=== PATIENT | female | born 1965 | race Hispanic/Latino ===

== ENCOUNTER 2017-09-25 00:44 | Emergency (ER) | payer OTHER ==
[~2017-09-25] VITALS: Ht 154.9 cm; Wt 89.1 kg
[2017-09-25 02:33] LABS: BASOPHIL (%) 0.2 % (0-1); EOSINOPHIL (%) 1.3 % (0-5); EOSINOPHIL COUNT 0.2 K/uL (0-0.3); HEMATOCRIT 38.6 % (36.0-46.0); HEMOGLOBIN 13.3 G/DL (11.9-15.5); IMMATURE GRANULOCYTE (%) 1.2 % (0.0-0.7); LYMPHOCYTE (%) 14.1 % (15-42); LYMPHOCYTE COUNT 1.7 K/uL (1.0-2.8); MCH 31.6 PG (29.0-34.0); MCHC 34.5 G/DL (30.0-36.0); MCV 91.7 FL (83-99); MONOCYTE (%) 7.1 % (3-12); MONOCYTE COUNT 0.9 K/uL (0-0.8); NEUTROPHIL (%) 76.1 % (45-76); NEUTROPHIL COUNT 9.2 K/uL (1.8-6.4); PLATELET COUNT 291 K/uL (156-360); RBC DIS.WIDTH-CV 13.2 % (11.8-14.6); RED BLOOD COUNT 4.21 M/uL (3.80-5.20); WHITE BLOOD COUNT 12.1 K/uL (4.1-10.2)
[2017-09-25 02:48] LABS: ALBUMIN 4.6 g/dL (3.2-4.8); CHLORIDE 105 mEq/L (99-109); POTASSIUM 4.2 mEq/L (3.7-5.4); SODIUM 140 mEq/L (136-147)
[2017-09-25 02:50] LABS: GLUCOSE 141 mg/dL (70-99); TOTAL PROTEIN 7.2 g/dL (6.4-8.3)
[2017-09-25 02:52] LABS: TOTAL BILIRUBIN 0.6 mg/dL (0.0-1.0)
[2017-09-25 02:54] LABS: APPEARANCE SL.HAZY ((CLEAR)); BILIRUBIN NEGATIVE; BLOOD NEGATIVE; COLOR AMBER ((YELLOW)); GLUCOSE (STRIP) NEGATIVE; KETONES 5; LEUKOCYTES NEGATIVE; NITRITE NEGATIVE; PROTEIN (STRIP) 30; SPECIFIC GRAVITY 1.027 (1.000-1.030)
[2017-09-25 02:55] LABS: ALKALINE PHOSPHATASE 75 IU/L (3-129); AST (GOT) 14 IU/L (2-34); CREATININE 1.3 mg/dL (0.6-1.3); GFR ESTIMATE (CALCULATED) 46 mL/min/; UREA NITROGEN (BUN) 16 mg/dL (9-23)
[2017-09-25 02:57] LABS: ALT (GPT) 14 IU/L (3-49); LIPASE 60 U/L (1.0-51.0)
[2017-09-25 03:18] LABS: TROP-I INTERPRETATION NEGATIVE; TROPONIN-I < 0.01 ng/mL (0.0-0.30)
[2017-09-25 04:02] LABS: BACTERIA RARE /HPF; EPITHELIAL CELLS 1+ /HPF; MUCUS 1+ /LPF; RED BLOOD CELLS 0-5 /HPF (0-5); WHITE BLOOD CELLS 0-5 /HPF (0-5)
[2017-09-25] MEDS ORDERED: IMODIUM A-D2 M2 PO (04:32)
[2017-09-25] MEDS ORDERED: PEPCID20 MG PO (04:32)
[2017-09-25] MEDS ORDERED: CARAFATE1 GM PO (04:32)
[2017-09-25] MEDS ORDERED: NORCO 10/3251 TABLET PO (04:35)
[2017-09-25 05:02] LABS: QUANTITATIVE HCG < 4.0 MIU/ML
[2017-09-25 05:12] VITALS: BP 102/58
== END 2017-09-25 05:17 | disposition home or self-care (01) ==
LOC: EME 00:44 → EDBD 00:44 → EME 00:44
PROVIDERS: Emergency Medicine
DX: K52.9 Noninfective gastroenteritis and colitis, unspecified (principal); R10.10 Upper abdominal pain, unspecified; C73 Malignant neoplasm of thyroid gland; Z92.3 Personal history of irradiation; Z92.21 Personal history of antineoplastic chemotherapy; I44.0 Atrioventricular block, first degree; K76.0 Fatty (change of) liver, not elsewhere classified; Z85.819 Personal history of malignant neoplasm of unspecified site of lip, oral cavity, and pharynx; Z90.49 Acquired absence of other specified parts of digestive tract; Z90.710 Acquired absence of both cervix and uterus
CPT/HCPCS: 74022; 74177; 80053; 81003; 81025; 83690; 84484; 84702; 85025; 93005; 99281; 99285; J2405; J3010; J7030